=== PATIENT | male | born 1935 | race Caucasian/White ===

== ENCOUNTER 2023-05-10 09:27 | Emergency (ER) | payer MEDICARE, OTHER, SELFPAY ==
[2023-05-10] VITALS (22 sets, daily range): BP systolic 141–187; BP diastolic 75–104; PULSE 45–124; RESP 18–30; TEMP 36.8; O2SAT 91–95; BMI 27.3
--- NOTE | 2023-05-10 09:47 | DI.RAD.S_ITS ---
PROCEDURE: XR CHEST 1V INDICATIONS: chest pain TECHNIQUE: One view of the chest was acquired. COMPARISON: None. FINDINGS: Surgical changes and devices: Cardiac valvular device. Sternotomy wires. Lungs and pleura: No dense consolidation or pleural effusion. Mediastinum: Aortic calcifications. Bones and chest wall: Degenerative changes. IMPRESSION: No acute radiographic abnormality. Dictated by: Otto Washington M.D. on 05/10/2023 at 10:27 Approved by: Otto Washington M.D. on 05/10/2023 at 10:28
[2023-05-10 09:54] LABS: Add Manual Diff / Slide Review NO; Basophils Absolute Auto 0 /uL (0-100); Basophils Percent Auto 0.5 % (0-2); Eosinophils Absolute Auto 100 /uL (0-450); Eosinophils Percent Auto 1.5 % (2-4); Hemoglobin 14.7 g/dL (13.5-17.5); Lymphocytes Absolute Auto 1200 /uL (1100-4500); Lymphocytes Percent Auto 16.1 % (25-40); Mean Corpuscular HGB Conc 34.3 % (30-36); Mean Corpuscular Hemoglobin 27.9 PG (26-34); Mean Corpuscular Volume 81.2 fL (80-100); Monocytes Absolute Auto 500 /uL (0-900); Monocytes Percent Auto 7.1 % (3-14); Neutrophils Absolute Auto 5700 /uL (1500-7000); Neutrophils Percent Auto 74.8 % (50-75); Platelet Count 109 X10^3/uL (150-400); Red Blood Cell Count 5.29 X10^6/uL (4.5-5.9); Red Cell Distribution Width 15.7 % (11.6-14.8); White Blood Cell Count 7.6 X10^3/uL (4.5-11.0)
[2023-05-10 09:59] LABS: INR 1.3 (0.9-1.3); Prothrombin Time 14.4 SECONDS (10.1-12.7)
[2023-05-10 10:02] LABS: PTT Partial Thromboplastin Tim 37 SECONDS (26-36)
[2023-05-10 10:04] LABS: Alanine Aminotransferase 20 IU/L (<50); Albumin 4.6 g/dL (3.5-5.0); Albumin Globulin Ratio 1.4 (1.0-2.8); Alkaline Phosphatase 59 U/L (38-126); Aspartate Aminotransferase 28 IU/L (17-59); BUN Creatinine Ratio 16.4 (6-22); Blood Urea Nitrogen 11 mg/dL (9-20); Calcium 9.4 mg/dL (8.4-10.2); Carbon Dioxide 23 mmol/L (22-32); Chloride 106 mmol/L (98-107); Creatine Kinase 98 U/L (55-170); Estimated Glomerular Filt Rate > 60 mL/min (>60); Globulin 3.2 g/dL (1.7-4.1); Glucose 151 mg/dL (80-110); HEMOLYSIS 26 (0-50); Lipase 66 U/L (23-300); Magnesium 2.1 mg/dL (1.6-2.3); Potassium 4.1 mmol/L (3.4-5.1); Sodium 139 mmol/L (137-145); Total Protein 7.8 g/dL (6.3-8.2)
--- NOTE | 2023-05-10 10:13 | ED_ITS ---
HPI - SOB/Dyspnea General Chief Complaint: Shortness of Breath/Dyspnea Stated Complaint: sent by DR GIPSON Time Seen by Provider: 05/10/23 09:52 Source: patient Mode of arrival: Ambulatory Limitations: no limitations History of Present Illness HPI Narrative: Patient is a 87-year-old male with history of atrial fibrillation on Eliquis, with valve replacement presenting today with increasing shortness of breath. He moved here from [place] saw his primary care provider yesterday for influenza vaccine. He reports that he was not having difficulty breathing then but he felt like he had a little bit of sinus congestion. This morning he woke up after restless sleep with obvious shortness of breath. He denies any chest pain. He is having some obvious conversational dyspnea and tachypnea. He reports that he is no history of congestive heart failure. He did smoke from 1135-2020-3 packs a day but no diagnosis of COPD or emphysema. He denies any fever chills or cough. He has no sore throat. He thinks maybe an infection went into his lungs last night. No lower extremity edema. He reports that he was trying to stay hydrated Related Data Home Medications Medication Instructions Recorded Confirmed apixaban 5 mg tablet (Eliquis) 5 mg PO BID 05/10/23 05/10/23 Allergies Allergy/AdvReac Type Severity Reaction Status Date / Time No Known Drug Allergies Allergy Verified 05/10/23 09:46 Review of Systems Review of Systems ROS Unobtainable: All systems reviewed & are unremarkable except as noted in HPI and below Patient History Social History Smoking Status: Former smoker Smoking Status: Former smoker alcohol intake frequency: 0-2 drinks per day Substance Use Type: does not use Exam Initial Vital Signs Initial Vital Signs: Vital Signs Temperature 98.2 F 05/10/23 09:30 Pulse Rate 110 H 05/10/23 09:30 Respiratory Rate 28 H 05/10/23 09:30 Blood Pressure 186/87 H 05/10/23 09:30 Pulse Oximetry 93 05/10/23 09:30 Oxygen Delivery Method Room Air 05/10/23 09:30 GENERAL: Alert 87-year-old male in [id number] respiratory distress and in no acute distress. HEENT: Head atraumatic,EOMI, pupils reactive, face symmetric, moist mucous membranes CARDIOVASCULAR: Regular rate and rhythm without murmurs, rubs or gallops. RESPIRATORY: Tachypneic respiratory distress rales bilaterally slight expiratory wheezing ABDOMEN: Soft, nontender. Normoactive bowel sounds all 4 quadrants. No guarding or rebound. : No CVA tenderness EXTREMITIES: Normal range of motion, no clubbing or edema. Neurovascularly intact NEUROLOGICAL: Alert and oriented x4. Cranial nerves grossly intact SKIN: Warm, dry, no laceration, no petechiae, no rashes or lesions. Course Orders Ordered: ED Orders 05/10/23 10:35 Respiratory Panel (Film Array) Stat 05/10/23 11:50 Trop I [Troponin I] Stat 05/10/23 12:05 EKG-12 Lead Stat Discontinued Medications Albuterol (Albuterol 2.5 Mg/3 Ml Neb (Adult)) 2.5 mg INH NOW ONE Stop: 05/10/23 13:53 Last Admin: 05/10/23 14:03 Dose: 2.5 mg Documented By: BANDAR Albuterol (Albuterol Hfa Prepack) 1 box MISC SEEINSTR ONE Stop: 05/10/23 15:16 Last Admin: 05/10/23 15:25 Dose: 1 box Documented By: KATE Albuterol/Ipratropium (Albuterol/Ipratropium 3 Ml Ampul) 3 ml INH NOW ONE Stop: 05/10/23 10:12 Last Admin: 05/10/23 10:16 Dose: 3 ml Documented By: BANDAR Furosemide (Furosemide 40 Mg/4 Ml Vial) 20 mg IV NOW ONE Stop: 05/10/23 10:12 Last Admin: 05/10/23 10:31 Dose: 20 mg Documented By: AMParul Vital Signs Vital signs: Vital Signs - 8 hr 05/10/23 11:30 05/10/23 11:30 05/10/23 12:00 Pulse Rate 81 78 Respiratory Rate 20 25 H Blood Pressure 141/75 H Pulse Oximetry 94 92 Oxygen Delivery Method 05/10/23 12:01 05/10/23 12:01 05/10/23 12:30 Pulse Rate 78 Respiratory Rate 30 H Blood Pressure 161/79 H 150/79 H Pulse Oximetry 94 Oxygen Delivery Method 05/10/23 12:30 05/10/23 13:00 05/10/23 13:01 Pulse Rate 79 78 Respiratory Rate 23 28 H Blood Pressure 167/85 H Pulse Oximetry 94 94 Oxygen Delivery Method 05/10/23 13:01 05/10/23 13:30 05/10/23 13:30 Pulse Rate 79 78 Respiratory Rate 27 H 24 Blood Pressure 187/89 H Pulse Oximetry 93 93 Oxygen Delivery Method Room Air 05/10/23 15:04 05/10/23 14:00 05/10/23 14:00 Pulse Rate 110 H 100 H Respiratory Rate 29 H Blood Pressure 185/96 H Pulse Oximetry Oxygen Delivery Method 05/10/23 14:30 05/10/23 14:31 05/10/23 14:31 Pulse Rate 88 90 Respiratory Rate 29 H 29 H Blood Pressure 151/104 H Pulse Oximetry Oxygen Delivery Method 05/10/23 15:02 05/10/23 15:30 Pulse Rate 45 L 81 Respiratory Rate 30 H Blood Pressure Pulse Oximetry 93 Oxygen Delivery Method MDM - SOB/Dyspnea Lab Data 05/10/23 09:45 05/10/23 09:45 Labs: Lab Results 05/10/23 05/10/23 05/10/23 Range/Units 09:45 09:45 09:45 WBC 7.6 (4.5-11.0) X10^3/uL RBC 5.29 (4.5-5.9) X10^6/uL Hgb 14.7 (13.5-17.5) g/dL Hct 43.0 (41-53) % MCV 81.2 (80-100) fL MCH 27.9 (26-34) PG MCHC 34.3 (30-36) % RDW 15.7 H (11.6-14.8) % Plt Count 109 L (150-400) X10^3/uL Neut % (Auto) 74.8 (50-75) % Lymph % (Auto) 16.1 L (25-40) % Harding % (Auto) 7.1 (3-14) % Eos % (Auto) 1.5 L (2-4) % Baso % (Auto) 0.5 (0-2) % Neut # (Auto) 5700 (3380-7193) /uL Lymph # (Auto) 1200 (3770-6406) /uL Harding # (Auto) 500 (0-900) /uL Eos # (Auto) 100 (0-450) /uL Baso # (Auto) 0 (0-100) /uL PT 14.4 H (10.1-12.7) SECONDS INR 1.3 (0.9-1.3) APTT 37 H (26-36) SECONDS Sodium 139 (137-145) mmol/L Potassium 4.1 (3.4-5.1) mmol/L Chloride 106 (98-107) mmol/L Carbon Dioxide 23 (22-32) mmol/L BUN 11 (9-20) mg/dL Creatinine 0.67 (0.66-1.25) mg/dL Estimated GFR > 60 (>60) mL/min BUN/Creatinine Ratio 16.4 (6-22) Glucose 151 H (80-110) mg/dL Calcium 9.4 (8.4-10.2) mg/dL Magnesium 2.1 (1.6-2.3) mg/dL Total Bilirubin 1.0 (0.2-1.3) mg/dL AST 28 (17-59) IU/L ALT 20 (<50) IU/L Alkaline Phosphatase 59 (38-126) U/L Total Creatine Kinase 98 (55-170) U/L Troponin I 0.050 H (0.01-0.034) ng/mL NT-Pro-B Natriuret Pep 571 H (<450) pg/mL Total Protein 7.8 (6.3-8.2) g/dL Albumin 4.6 (3.5-5.0) g/dL Globulin 3.2 (1.7-4.1) g/dL Albumin/Globulin Ratio 1.4 (1.0-2.8) Lipase 66 (23-300) U/L Chlamy pneumoniae PCR (Not Detect) Adenovirus (PCR) (Not Detect) B. pertussis DNA (PCR) (Not Detecte) B.parapertussis DNA PCR (Not Detecte) Coronavirus OC43 (PCR) (Not Detect) Coronavirus HKU1 (PCR) (Not Detect) Coronavirus 229E (PCR) (Not Detect) SARS-CoV-2 (PCR) (Not Detecte) Coronavirus NL63 (PCR) (Not Detect) Human Metapneumovir PCR (Not Detect) Influenza Type A (PCR) (Not Detect) Influenza Type B (PCR) (Not Detect) M. pneumoniae (PCR) (Not Detect) Parainfluenza 1 (PCR) (Not Detect) Parainfluenza 2 (PCR) (Not Detect) Parainfluenza 3 (PCR) (Not Detect) Parainfluenza 4 (PCR) (Not Detect) RSV (PCR) (Not Detect) Entero/Rhino (PCR) (Not Detect) 05/10/23 05/10/23 Range/Units 10:35 11:50 WBC (4.5-11.0) X10^3/uL RBC (4.5-5.9) X10^6/uL Hgb (13.5-17.5) g/dL Hct (41-53) % MCV (80-100) fL MCH (26-34) PG MCHC (30-36) % RDW (11.6-14.8) % Plt Count (150-400) X10^3/uL Neut % (Auto) (50-75) % Lymph % (Auto) (25-40) % Harding % (Auto) (3-14) % Eos % (Auto) (2-4) % Baso % (Auto) (0-2) % Neut # (Auto) (1889-2652) /uL Lymph # (Auto) (0314-2806) /uL Harding # (Auto) (0-900) /uL Eos # (Auto) (0-450) /uL Baso # (Auto) (0-100) /uL PT (10.1-12.7) SECONDS INR (0.9-1.3) APTT (26-36) SECONDS Sodium (137-145) mmol/L Potassium (3.4-5.1) mmol/L Chloride (98-107) mmol/L Carbon Dioxide (22-32) mmol/L BUN (9-20) mg/dL Creatinine (0.66-1.25) mg/dL Estimated GFR (>60) mL/min BUN/Creatinine Ratio (6-22) Glucose (80-110) mg/dL Calcium (8.4-10.2) mg/dL Magnesium (1.6-2.3) mg/dL Total Bilirubin (0.2-1.3) mg/dL AST (17-59) IU/L ALT (<50) IU/L Alkaline Phosphatase (38-126) U/L Total Creatine Kinase (55-170) U/L Troponin I 0.049 H (0.01-0.034) ng/mL NT-Pro-B Natriuret Pep (<450) pg/mL Total Protein (6.3-8.2) g/dL Albumin (3.5-5.0) g/dL Globulin (1.7-4.1) g/dL Albumin/Globulin Ratio (1.0-2.8) Lipase (23-300) U/L Chlamy pneumoniae PCR Not detected (Not Detect) Adenovirus (PCR) Not detected (Not Detect) B. pertussis DNA (PCR) Not detected (Not Detecte) B.parapertussis DNA PCR Not detected (Not Detecte) Coronavirus OC43 (PCR) Not detected (Not Detect) Coronavirus HKU1 (PCR) Not detected (Not Detect) Coronavirus 229E (PCR) Not detected (Not Detect) SARS-CoV-2 (PCR) Not detected (Not Detecte) Coronavirus NL63 (PCR) Not detected (Not Detect) Human Metapneumovir PCR Not detected (Not Detect) Influenza Type A (PCR) Not detected (Not Detect) Influenza Type B (PCR) Not detected (Not Detect) M. pneumoniae (PCR) Not detected (Not Detect) Parainfluenza 1 (PCR) Not detected (Not Detect) Parainfluenza 2 (PCR) Not detected (Not Detect) Parainfluenza 3 (PCR) Not detected (Not Detect) Parainfluenza 4 (PCR) Not detected (Not Detect) RSV (PCR) Not detected (Not Detect) Entero/Rhino (PCR) Detected H (Not Detect) Urine Dip Bedside Urine Glucose Negative Bedside Urine Bilirubin - Negative Bedside Urine Ketone - Negative Urine Specific [place] 1.01 Bedside Urine Occult Blood - Negative Bedside Urine pH 6 Bedside Urine Protein - Negative Bedside Urine Urobilinogen - Negative Bedside Urine Nitrite - Negative Bedside Urine Leukocytes - Negative Esterase Imaging Data Chest x-ray: Radiologist's Impression: PROCEDURE:? XR CHEST 1V ? INDICATIONS:? chest pain ? TECHNIQUE:? One view of the chest was acquired.? ? COMPARISON:? None. ? FINDINGS:? ? Surgical changes and devices:? Cardiac valvular device.? Sternotomy wires. ? Lungs and pleura:? No dense consolidation or pleural effusion. ? Mediastinum:? Aortic calcifications. ? Bones and chest wall:? Degenerative changes. ? ? IMPRESSION:? No acute radiographic abnormality. ? ? Dictated by: Otto Washington M.D. on 05/10/2023 at 10:27 ECG Data Interpretation: Irregular racing in atrial fibrillation rate 100 EKG 2. Atrial flutter rate [address] changes MDM Narrative Medical decision making narrative: Patient 87-year-old male very pleasant presenting today with what he thought was upper respiratory infection that got worse. He is some obvious conversational dyspnea sounds wet on exam. Based on his smoking history he was given DuoNeb and Lasix. He actually started breathing much better got off oxygen and was able to have a full conversation. His chest x-ray is clear but respiratory panel positive for entero/rhinovirus. BNP minimally elevated at 571 chest x-ray is clear. Troponins are indeterminate but stable Initially there was concern for possible flash pulmonary edema congestive heart failure so he was given Lasix. However he actually improved more with duo nebs. He then started having more difficulty breathing was given another treatment which then helped. I suspect that this is viral related. No evidence of sepsis at this time. Chest x-ray is clear. And he is not hypoxic. Symptoms are consistent with a viral like picture. He reports having some congestion he felt a little bit yesterday and then today having sudden onset worsening shortness of breath. He ambulated in the ED oxygen went down to 89 but quickly went up into the 90s. We discussed admission versus discharge home. At this time he would like to go home which seems reasonable. We discussed how he may get worse and may need to return to the ED and is courage to do so. Labs have been reviewed Chest x-ray has been reviewed Discharge Plan Departure Patient Disposition: Home Clinical Impression: Acute upper respiratory infection Instructions: DI for Viral Upper Respiratory Infection -- Adult Activity Restrictions/Additional Instructions: *You have been diagnosed with upper respiratory tract *What to do: At this time you have virus. It will run its course can take up to 10 days. You may start feeling worse over the next few days *Continue to take medications as directed Albuterol 1-2 puffs every 4 hours if needed for shortness of breath Tylenol 650 mg every 4-6 hours if needed for [id number] pain or Avoid ibuprofen you are taking Eliquis *Follow up with your primary care provider in 2-3 days or call [phone] *Return to ER if you should have increasing shortness of breath decreased intake chest pain or any new, worsening or concerning symptoms Prescriptions: No Action Eliquis 5 mg tablet 5 mg PO BID Referrals: Miscellaneous,Doctor, MD [Primary Care Provider] - Stand Alone Forms: Patient Portal/API
[2023-05-10] MEDS: ALBUTEROL/IPRATROPIUM 3 ML AMPUL INH (10:16)
[2023-05-10 10:17] LABS: NT-proBNP (BNP-Adult 18+) 571 pg/mL (<450)
[2023-05-10] MEDS: FUROSEMIDE 40 MG/4 ML VIAL 20 MG IV (10:31)
[2023-05-10 11:58] LABS: Adenovirus Not Detected (Not Detect); B. parapertussis Not Detected (Not Detecte); Bordetella pertussis Not Detected (Not Detecte); Chlamydophila pneumoniae Not Detected (Not Detect); Coronavirus 229E Not Detected (Not Detect); Coronavirus HKU1 Not Detected (Not Detect); Coronavirus NL 63 Not Detected (Not Detect); Coronavirus OC43 Not Detected (Not Detect); Human Metapneumovirus Not Detected (Not Detect); Human Rhinovirus/Enterovirus Detected (Not Detect); Influenza A Not Detected (Not Detect); Influenza B Not Detected (Not Detect); Mycoplasma pneumoniae Not Detected (Not Detect); Parainfluenza Virus 1 Not Detected (Not Detect); Parainfluenza Virus 2 Not Detected (Not Detect); Parainfluenza Virus 3 Not Detected (Not Detect); Parainfluenza Virus 4 Not Detected (Not Detect); Respiratory Syncytial Virus Not Detected (Not Detect); SARS- CoV-2 Not Detected (Not Detecte)
[2023-05-10 12:24] LABS: Troponin I 0.049 ng/mL (0.01-0.034)
[2023-05-10] MEDS: ALBUTEROL 2.5 MG/3 ML NEB (ADULT) INH (14:03)
[2023-05-10] MEDS: ALBUTEROL HFA PREPACK 1 BOX MISC (15:25)
== END 2023-05-10 15:59 | disposition home or self-care (01) ==
PROVIDERS: Emergency Provider Emergency Medicine
DX: J06.9 Acute upper respiratory infection, unspecified (principal); R07.9 Chest pain, unspecified; Z20.822 Contact with and (suspected) exposure to COVID-19
CPT/HCPCS: 36415; 71045; 80053; 81003; 82550; 83690; 83735; 83880; 84484; 85025; 85610; 85730; 87633; 93005; 93010; 94640; 96374; 99284; J1940; J7613

== ENCOUNTER → 2023-11-08 10:45 | Outpatient (CLI) | payer OTHER, SELFPAY ==
--- NOTE | 2023-11-08 | DI.US.S_ITS ---
PROCEDURE: US ABDOMEN LIMITED INDICATIONS: LEFT INGUINAL BULGE, PAIN TECHNIQUE: Real-time focused scanning was performed of the abdomen, with image documentation. COMPARISON: None. Findings and impression: In the area of clinical concern in the left lower quadrant, no discrete hernia or mass or fluid collection is seen. Dictated by: Otto Washington M.D. on 11/08/2023 at 13:14 Approved by: Otto Washington M.D. on 11/08/2023 at 13:14
== END ==
LOC: US 10:48
PROVIDERS: PCP Family Medicine; Referring Provider Family Medicine; Visit Provider Family Medicine
DX: K40.90 Unilateral inguinal hernia, without obstruction or gangrene, not specified as recurrent (principal)
CPT/HCPCS: 76705

== ENCOUNTER 2023-12-26 10:03 | Day surgery (SDC) | payer OTHER, SELFPAY ==
[2023-12-21 14:34] VITALS: BMI 26.9
[2023-12-26] VITALS (7 sets, daily range): BP systolic 131–169; BP diastolic 73–79; PULSE 62–73; RESP 12–20; TEMP 36.4–36.6; O2SAT 96–98; BMI 26.9
[2023-12-26] MEDS: LACTATED RINGERS 1,000 ML 42 ML IV (10:44)
--- NOTE | 2023-12-26 11:00 | P.HP_ITS ---
History of Present Illness History of Present Illness Date Patient Seen: 12/26/23 Time Patient Seen: 11:00 Chief complaint: SDC Narrative: Shyam is an 88-year-old man who has a left inguinal hernia that bulges significantly especially after he eats. 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 He did hold his Eliquis yesterday. See prior office note for more details. [facility] Medical History (Updated 12/22/23 @ 08:04 by Kymberly Raygoza RN) Hypertriglyceridemia Paroxysmal atrial fibrillation Afib Hypertension Glaucoma Diabetes Surgical History (Updated 12/22/23 @ 08:04 by Kymberly Raygoza RN) Hx of tonsillectomy Hx of shoulder surgery Hx of heart surgery (11/29/06) Hx of hernia repair Social History household members: spouse Smoking Status: Former smoker alcohol intake: current Meds Home Medications and Allergies Home Medications Medication Instructions Recorded Confirmed Type apixaban 5 mg tablet (Eliquis) 5 mg PO BID 05/10/23 12/26/23 History atorvastatin 40 mg tablet 40 mg PO DAILY 11/21/23 12/26/23 History lisinopril 5 mg tablet 5 mg PO DAILY 11/21/23 12/26/23 History Allergies Allergy/AdvReac Type Severity Reaction Status Date / Time No Known Drug Allergies Allergy Verified 12/26/23 10:31 Exam Vital Signs (past 8 hours): - 12/26/23 10:32 Temperature 98 F Pulse Rate 73 Respiratory Rate 20 Blood Pressure 169/79 H Pulse Oximetry 97 Oxygen Delivery Method Room Air Oxygen Delivery Method Room Air Const General: No acute distress Resp Effort & Inspection: normal respiratory effort GI Other: Left inguinal hernia Assessment & Plan Assessment and plan (1) Left inguinal hernia: Status: Acute Plan Shyam is an 88-year-old man with a symptomatic left inguinal hernia. We reviewed the risks and benefits of open left inguinal hernia repair with sedation and he would like to proceed.
--- NOTE | 2023-12-26 11:15 | SUR.OPER ---
Supine on padded OR bed, head on pillow, arms secured on padded arm boards at <90 degrees abduction, legs uncrossed, safety belt at thigh, tape over blanket over lower legs.
[2023-12-26] MEDS: CEFAZOLIN 2 GM/100 ML PREMIX 100 ML IV (11:17)
[2023-12-26] MEDS: LIDOCAINE 1% W/EPI 20 ML INJ (11:30)
[2023-12-26] MEDS: BUPIVACAINE 0.5% W/ EPI (PF) 30 ML VIAL INJ (11:32)
--- NOTE | 2023-12-26 12:36 | P.OP_ITS ---
Operative Date/Time/Diagnoses Date of procedure: 12/26/23 Time of procedure: 12:36 Pre-op diagnosis: Left inguinal hernia Post-op diagnosis: other (Left indirect inguinal hernia) Procedure & Clinicians Procedure: Open left inguinal hernia repair with mesh Same procedure as scheduled: Yes Surgeon: Ranjan Glover Anesthesia Type: MAC +/- Operative Notes Procedure in detail: Preoperative antibiotic was administered. The patient was brought to the operating room and placed on the table in supine position and sedation was induced. The left groin was prepped and draped in the normal fashion and a time-out was performed. Roughly 10 mL of local anesthetic were injected into the skin and subcutaneous adipose tissue over the left groin. A 6 cm incision was made over the left inguinal canal. Dissection was carried down through the subcutaneous adipose tissue. A bridging vein was cauterized. We exposed the external oblique aponeurosis in the direction of the fibers. Additional local was injected deep to the aponeurosis. A 15 blade scalpel was used to laura the external oblique aponeurosis. Metzenbaum scissors were used to carefully open the aponeurosis in the direction of the fibers taking care not to injure the underlying ilioinguinal nerve. We completely exposed the inguinal canal. The cord was dissected free from the inguinal ligament and floor of the inguinal canal and the external oblique aponeurosis was dissected off of the internal oblique taking care not to injure the hypogastric nerve. We encircled the cord with a Scott drain for retraction. There was a relatively large indirect defect. The hernia sac and a fatty cord lipoma were dissected off the cord structures and reduced into the abdomen. We placed a polypropylene mesh over the inguinal canal floor. The mesh was secured with multiple interrupted 3-0 Prolene sutures to the pubic tubercle and shelving edge of the inguinal ligament as well as to the conjoint tendon medially. We overlapped the tails to recreate an internal ring and secured the medial tail to the inguinal ligament with additional sutures. We injected some more local into the fatty tissue in the inguinal canal and cord. Finally, we removed the Universal drain and closed the external oblique fascia wi th a running 3-0 Vicryl suture. Skin was closed with interrupted 3-0 Vicryl dermal sutures and a running 4 Monocryl subcuticular stitch. EBL 5 mL The patient was awakened and brought to recovery room. Post-operative Condition: stable Disposition: PACU
== END 2023-12-26 13:34 | disposition home or self-care (01) ==
PROVIDERS: PCP Family Medicine; Referring Provider Surgery; Visit Provider Surgery
PROC: (CPT 49505; principal; 2023-12-26 11:45)
DX: K40.90 Unilateral inguinal hernia, without obstruction or gangrene, not specified as recurrent (principal)
CPT/HCPCS: 49505; 82962; J0690; J2704; J3010

== ENCOUNTER → 2024-02-16 09:11 | Outpatient (CLI) | payer OTHER, SELFPAY ==
--- NOTE | 2024-02-16 09:12 | DI.ECHO.S_ITS ---
[facility] : : [address] : : [place] : : [id number] : : Phone: [phone] Echocardiogram Report + + :Name: JOVITA NEWMAN Study Date: 02/16/2024 Height: 71 in : :[facility] ReadingLocation: Weight: 194 lb : : Gender: Male BSA: 2.1 m2 : :: 1935 Age: 88 yrs BP: 154/76 mmHg: :Reason For Study: ATRIAL FIBRILLATION : :Ordering Physician: DANIE, : :VENITA Performed By: Terry Mark : :Referring: VENITA HELTON : + + Interpretation Summary The ejection fraction is estimated to be 55-60%. The right ventricle is mildly dilated. Right ventricular systolic function is mildly reduced. The left atrium is severely dilated. The right atrium is moderately dilated. The right ventricular systolic pressure is estimated to be at least 40.2 mmHg based on an estimated right atrial pressure of 8 mm Hg. There is mild to moderate tricuspid regurgitation. The mitral valve has been surgically repaired and an annuloplasty ring sewn in place. Procedure: A two-dimensional transthoracic echocardiogram with color flow and Doppler was performed. The study quality was technically adequate. There is no prior echocardiogram noted for this patient. The heart rate ranged between 69-75 bpm during the study. Left Ventricle: The left ventricle is normal in size and wall thickness. The ejection fraction is estimated to be 55-60%. Left ventricular wall motion is normal. Right Ventricle: The right ventricle is mildly dilated. Right ventricular systolic function is mildly reduced. Atria: The left atrium is severely dilated. The right atrium is moderately dilated. The interatrial septum grossly appears intact with no obvious evidence for an atrial septal defect. Mitral Valve: The mitral valve leaflets appear moderately thickened, but open well. The mitral valve has been surgically repaired and an annuloplasty ring sewn in place. There is no mitral valve stenosis. There is trace mitral regurgitation. Aortic Valve: The aortic valve is trileaflet. There is moderate aortic valve sclerosis. There is no aortic valve stenosis. There is moderate to severe aortic regurgitation. Tricuspid Valve: The tricuspid valve is normal. There is no tricuspid stenosis. There is mild to moderate tricuspid regurgitation. The right ventricular systolic pressure is estimated to be at least 40.2 mmHg based on an estimated right atrial pressure of 8 mm Hg. Pulmonic Valve: The pulmonic valve is not well seen, but is grossly normal. There is no pulmonic valvular stenosis. There is mild to moderate pulmonic regurgitation. Great Vessels: The aortic root is mildly dilated. The ascending aorta is mildly enlarged. The IVC is dilated (diameter is greater than 2.1 cm) yet it collapses greater than 50% with a sniff. This suggests a right atrial pressure of 8 mm Hg. Pericardium/ Pleura There is no pericardial effusion. There is no pleural effusion. MMode/2D Measurements & Calculations LVIDd: 4.4 cm LVOT diam: 2.3 cm LVIDs: 2.8 cm Ao root diam: 4.1 cm FS: 36.2 % asc Aorta Diam: 4.0 cm IVSd: 1.0 cm Ao Arch Diam (Prox Trans): 3.7 cm LVPWd: 1.0 cm LV stephens. diameter/BSA (cm/m^2): 2.1 LV sys. diameter/BSA (cm/m^2): 1.4 LA A2 area: 37.0 cm2 RA long axis: 5.4 cm LA A4 area: 33.7 cm2 RA area: 19.2 cm2 LA length (vol): 7.4 cm RA vol: 58.6 ml LA vol: 142.8 ml RA : 28.1 ml/m2 LA vol index: 68.6 ml/m2 IVC diam: 2.1 cm RVD1 (basal): 4.6 cm RVD2 (mid): 3.6 cm TAPSE: 1.7 cm Doppler Measurements & Calculations Ao V2 max: 145.9 cm/sec LVOT Max Darren: 105.6 cm/sec Ao V2 mean: 97.0 cm/sec LV V1 max P.5 mmHg Ao max P.5 mmHg LV V1 VTI: 24.9 cm Ao mean P.3 mmHg SILVIANO(I,D): 3.7 cm2 Ao V2 VTI: 28.4 cm SILVIANO(V,D): 3.0 cm2 sev ratio: 0.87 SILVIANO indexed to BSA (cm^2/m^2): 1.8 AI P1/2t: 447.3 msec AI dec slope: 297.1 cm/sec2 MV E max darren: 163.6 cm/sec TR max darren: 283.5 cm/sec MV A max darren: 19.4 cm/sec TR max P.2 mmHg MV E/A: 8.5 PA V2 max: 106.6 cm/sec Med Peak E' Darren: 5.7 cm/sec PA V2 mean: 84.1 cm/sec E/E' med: 28.6 PA mean P.0 mmHg Lat Peak E' Darren: 9.0 cm/sec PA pr(Accel): 39.6 mmHg E/E' lat: 18.2 E/e' average: 23.4 MV dec time: 0.29 sec SV(LVOT): 104.1 ml Reading Physician:02:32 PM
== END ==
PROVIDERS: PCP Family Medicine; Referring Provider Internal Medicine Cardiovascular Disease; Visit Provider Internal Medicine Cardiovascular Disease
DX: I08.2 Rheumatic disorders of both aortic and tricuspid valves (principal); I77.810 Thoracic aortic ectasia; I77.89 Other specified disorders of arteries and arterioles; I48.91 Unspecified atrial fibrillation
CPT/HCPCS: 93306

== ENCOUNTER 2024-08-06 13:56 | Emergency (ER) | payer OTHER, SELFPAY ==
[2024-08-06 14:04] VITALS: BP 186/92; PULSE 74; RESP 20; TEMP 36.6; O2SAT 97; BMI 26.8
--- NOTE | 2024-08-06 14:11 | DI.CT.S_ITS ---
PROCEDURE: CT ANGIO HEAD AND NECK INDICATIONS: Right-sided visual changes TECHNIQUE: After the administration of intravenous contrast, 1 mm thick sections acquired from the aortic arch through the [place] of Bone. 3-dimensional zkvcarl-wnvjydufb-wvgplzxmtl (MIP) and/or volume rendering reformats were acquired of the central intracranial vasculature and neck separately. For radiation dose reduction, the following was used: automated exposure control, adjustment of mA and/or kV according to patient size. COMPARISON: None. FINDINGS: Image quality: Diagnostic. BRAIN: CSF spaces: Ventricles are normal in size and shape. Basal cisterns are patent. No extra-axial fluid collections. Brain: No significant abnormality of the brain can be seen. Skull and face: Calvarium and facial bones appear intact, without suspicious lesions. Orbits appear normal. Sinuses: Sinuses and mastoids are clear. HEAD CT ANGIOGRAPHY: Anterior circulation: Intracranial internal carotid arteries are normal in size and flow. The flow within the paired anterior cerebral arteries is normal and symmetric. The flow within the middle cerebral arteries is normal and symmetric. The anterior communicating artery is seen. No aneurysms are seen. Posterior circulation: Visualized portions of the vertebral arteries demonstrate normal caliber, and join to form a normal appearing basilar artery. Flow within the posterior cerebral arteries is normal and symmetric. No aneurysms are seen. NECK CT ANGIOGRAPHY: Carotid system: The great vessels demonstrate a conventional anatomy as they arise from the aortic arch. The origins of the common carotid arteries appear patent. The common carotid arteries demonstrate normal caliber and courses. The bifurcation regions are both widely patent. The internal carotid arteries demonstrate normal calibers and courses. Posterior circulation: The origins of the vertebral arteries both appear widely patent. The more superior extracranial portions of both vertebral arteries also demonstrate normal courses and calibers. They join to form a normal appearing basilar artery. Aneurysmal dilatation of the ascending aorta measuring approximately 4.7 cm on the lowest image provided. Soft tissues: Visualized neck soft tissues demonstrate no suspicious abnormalities. Bones: No suspicious bony lesions. Visualized cervical spine appears normally aligned. IMPRESSION: No significant intracranial arterial abnormality is seen. No significant abnormality is seen within the arteries of the neck. Aneurysmal dilatation of the ascending aorta. Any quantitative measurements of stenosis were performed using NASCET criteria. Dictated by: Satish Hankins M.D. on 08/06/2024 at 14:48 Approved by: Satish Hankins M.D. on 08/06/2024 at 14:51
--- NOTE | 2024-08-06 14:12 | DI.CT.S_ITS ---
PROCEDURE: CT HEAD/BRAIN WO CON INDICATIONS: Right-sided visual changes TECHNIQUE: Noncontrast 4.5 mm thick angled axial sections acquired from the foramen magnum to the vertex, with coronal and sagittal reformats. For radiation dose reduction, the following was used: automated exposure control, adjustment of mA and/or kV according to patient size. COMPARISON: None. FINDINGS: Image quality: Diagnostic. CSF spaces: Basal cisterns are patent. No extra-axial fluid collections. The ventricles are symmetric in size and shape. Brain: No intracranial bleeds or masses. There is cerebral volume loss for age, with resultant ventricular and sulcal prominence. There are periventricular and deep white matter chronic small vessel ischemic changes. There is intracranial internal carotid artery atherosclerosis. Skull and face: Calvarium and visualized facial bones appear intact, without suspicious lesions. Sinuses: Patchy bilateral ethmoid opacification. Bilateral maxillary sinus mucosal thickening. Right maxillary sinus mucous retention cyst. IMPRESSION: 1. No acute intracranial process. 2. Volume loss and small vessel ischemic change. 3. Chronic sinusitis. Dictated by: Satish Hankins M.D. on 08/06/2024 at 14:46 Approved by: Satish Hankins M.D. on 08/06/2024 at 14:47
--- NOTE | 2024-08-06 14:14 | EKG_ITS ---
[address] [address] Test Date: 2024-08-06 Pat Name: Kit Espana Department: Room: Gender: Male Machine Sander: NISHA : 1935 Requested By: Order Number: [id number] Reading MD: Noel Hicks MD Measurements Intervals [place] Rate: 74 P: [place]: QRS: 78 QRSD: 96 T: 74 QT: 374 QTc: 415 Interpretive Statements Accelerated Junctional rhythm Cannot rule out Anterior infarct , age undetermined Electronically Signed On 08-07-2024 6:51:13 PST by Noel Hicks MD
[2024-08-06 14:31] LABS: Add Manual Diff / Slide Review NO; Basophils Absolute Auto 100 /uL (0-100); Basophils Percent Auto 1.2 % (0-2); Eosinophils Absolute Auto 200 /uL (0-450); Hemoglobin 15.1 g/dL (13.5-17.5); Lymphocytes Absolute Auto 1400 /uL (1100-4500); Lymphocytes Percent Auto 22.8 % (25-40); Mean Corpuscular HGB Conc 33.6 % (30-36); Mean Corpuscular Hemoglobin 28.3 PG (26-34); Mean Corpuscular Volume 84.4 fL (80-100); Monocytes Absolute Auto 600 /uL (0-900); Monocytes Percent Auto 9.6 % (3-14); Neutrophils Absolute Auto 3700 /uL (1500-7000); Neutrophils Percent Auto 62.4 % (50-75); Platelet Count 151 X10^3/uL (150-400); Red Blood Cell Count 5.34 X10^6/uL (4.5-5.9); Red Cell Distribution Width 15.5 % (11.6-14.8)
[2024-08-06 14:35] LABS: INR 1.2 (0.9-1.3); Prothrombin Time 13.9 SECONDS (9.4-12.5)
[2024-08-06 14:38] LABS: PTT Partial Thromboplastin Tim 45 SECONDS (25.1-36.5)
[2024-08-06 14:42] LABS: Alanine Aminotransferase 25 IU/L (<50); Albumin 4.7 g/dL (3.5-5.0); Albumin Globulin Ratio 1.7 (1.0-2.8); Alkaline Phosphatase 59 U/L (38-126); Aspartate Aminotransferase 32 IU/L (17-59); BUN Creatinine Ratio 16.3 (6-22); Blood Urea Nitrogen 17 mg/dL (9-20); Calcium 10.1 mg/dL (8.4-10.2); Carbon Dioxide 28 mmol/L (22-32); Chloride 105 mmol/L (98-107); Creatine Kinase 87 U/L (55-170); Estimated Glomerular Filt Rate > 60 mL/min (>60); Globulin 2.8 g/dL (1.7-4.1); Glucose 106 mg/dL (80-110); HEMOLYSIS < 15 (0-50); Lipase 64 U/L (23-300); Potassium 4.1 mmol/L (3.4-5.1); Sodium 140 mmol/L (137-145); Total Protein 7.5 g/dL (6.3-8.2)
[2024-08-06 14:47] VITALS: BP 151/74; PULSE 66; RESP 18; RESP 20; O2SAT 92
[2024-08-06 14:55] LABS: Troponin I < 0.012 ng/mL (0.01-0.034)
--- NOTE | 2024-08-06 14:59 | ED.NEUROSD ---
HPI - Neuro Symptoms/Deficit General Chief Complaint: Neuro Symptoms/Deficit Stated Complaint: stroke symptoms, sent by PT Time Seen by Provider: 08/06/24 14:11 Source: patient and family Mode of arrival: Ambulatory History of Present Illness HPI Narrative: Patient was an 88-year-old male. Is on Eliquis secondary to atrial fibrillation. No prior history of strokes. He states that he is a ekm-tnrzexc-moyjfykrz diabetic. Has a history of high blood pressure. Uses a cane sometimes for ambulation. Walks every day. Yesterday noticed that he was having some weakness to his right arm. He also describes a ?pressure? behind the right eye. No vision changes. Also has a slight headache. He also notices weakness in his lower extremities. He feels like it is both sides equal. He was still ambulatory. No falls. No chest pain or shortness of breath or abdominal pain. No skin changes. Has been taking all of his medications as directed. On Anticoagulants: Yes (Eliquis for hx of Afib) Related Data Home Medications Medication Instructions Recorded Confirmed apixaban 5 mg tablet (Eliquis) 5 mg PO BID 05/10/23 01/09/24 atorvastatin 40 mg tablet 40 mg PO DAILY 11/21/23 01/09/24 lisinopril 5 mg tablet 5 mg PO DAILY 11/21/23 01/09/24 Allergies Allergy/AdvReac Type Severity Reaction Status Date / Time No Known Drug Allergies Allergy Verified 01/09/24 14:09 Review of Systems Review of Systems ROS Unobtainable: All systems reviewed & are unremarkable except as noted in HPI and below Hematologic/Lymphatic On Anticoagulants: Yes (Eliquis for hx of Afib) Patient History Medical History Hypertriglyceridemia Paroxysmal atrial fibrillation Afib Hypertension Glaucoma Diabetes Surgical History (Updated 12/22/23 @ 08:04 by Kymberly Raygoza RN) Hx of tonsillectomy Hx of shoulder surgery Hx of heart surgery (11/29/06) Hx of hernia repair Social History household members: spouse Smoking Status: Former smoker alcohol intake: current Smoking Status: Former smoker alcohol intake frequency: a few times a month Exam Initial Vital Signs Initial Vital Signs: Vital Signs Temperature 97.9 F 08/06/24 14:04 Pulse Rate 74 08/06/24 14:04 Respiratory Rate 20 08/06/24 14:04 Blood Pressure 186/92 H 08/06/24 14:04 Pulse Oximetry 97 08/06/24 14:04 Oxygen Delivery Method Room Air 08/06/24 14:04 Const General: cooperative, comfortable and No ill appearing HENMT Head: normal to inspection and normocephalic Resp Effort & Inspection: normal respiratory effort Auscultation: clear to auscultation bilaterally Cardio Rate: regular rate Rhythm: regular rhythm GI Inspection: normal to inspection and non-distended Neuro General: patient alert, patient awake, patient oriented x3 and moves all extremities Cranial Nerves: CN's II-XI intact bilaterally Cognition: normal cognition Speech: speech normal Motor: muscle tone normal throughout Sensory Exam: no sensory deficits noted Coordination: atjged-td-klgb test normal and qqnh-po-coyl test normal Extrem General: normal to inspection and capillary refill normal Scores GCS Todd coma scale eye opening: Spontaneous Todd coma scale verbal response: Orientated [place] coma scale motor response: Obey commands Todd coma scale total score: 15 NIH Stroke Scale Level of Conciousness: Alert, keenly responsive Ask month/age: Answers both questions correctly. Open/close eyes, close hand: Performs both tasks correctly Best gaze horizontal: Normal Visual briones: No visual loss Facial palsy: Normal symetrical movement Left arm drift: No drift for full 10 sec Right arm drift: No drift for full 10 sec Left leg drift: No drift for full 5 sec Right leg drift: No drift for full 5 sec Limb ataxia: Absent Sensory on face/arms/legs: Normal, no sensory loss Best language: No aphasia, normal Dysarthria: Normal Extinction or inattention: No abnormality Total NIH Stroke scale score: 0 Course Orders Ordered: ED Orders 08/06/24 14:11 CT angio head and neck Stat 08/06/24 14:12 CT head/brain wo con Stat EKG-12 Lead Stat 08/06/24 14:15 Complete Blood Count AUTO DIFF Stat Comprehensive Metabolic Panel Stat Lipase Stat PTT Partial Thromboplastin Devin Stat Prothrombin Time INR Stat Troponin & CK Cardiac Panel Stat Vital Signs Vital signs: Vital Signs - 8 hr 08/06/24 14:04 08/06/24 14:47 08/06/24 14:47 Temperature 97.9 F Pulse Rate 74 66 66 Respiratory Rate 20 18 20 Blood Pressure 186/92 H 151/74 H Pulse Oximetry 97 92 92 Oxygen Delivery Method Room Air Room Air 08/06/24 15:00 08/06/24 15:00 08/06/24 15:42 Temperature 97.8 F Pulse Rate 67 74 Respiratory Rate 20 16 Blood Pressure 164/82 H 179/90 H Pulse Oximetry 96 97 Oxygen Delivery Method Room Air Room Air MDM - Neuro Symptoms/Deficit Medical Records Attestation: I reviewed the patient's medical records. Lab Data Attestation: I reviewed the patient's lab results. 08/06/24 14:15 08/06/24 14:15 Labs: Lab Results 08/06/24 Range/Units 14:15 WBC 6.0 (4.5-11.0) X10^3/uL RBC 5.34 (4.5-5.9) X10^6/uL Hgb 15.1 (13.5-17.5) g/dL Hct 45.0 (41-53) % MCV 84.4 (80-100) fL MCH 28.3 (26-34) PG MCHC 33.6 (30-36) % RDW 15.5 H (11.6-14.8) % Plt Count 151 (150-400) X10^3/uL Neut % (Auto) 62.4 (50-75) % Lymph % (Auto) 22.8 L (25-40) % [place] % (Auto) 9.6 (3-14) % Eos % (Auto) 4.0 (2-4) % Baso % (Auto) 1.2 (0-2) % Neut # (Auto) 3700 (6546-7028) /uL Lymph # (Auto) 1400 (2557-7142) /uL [place] # (Auto) 600 (0-900) /uL Eos # (Auto) 200 (0-450) /uL Baso # (Auto) 100 (0-100) /uL PT 13.9 H (9.4-12.5) SECONDS INR 1.2 (0.9-1.3) APTT 45 H (25.1-36.5) SECONDS Sodium 140 (137-145) mmol/L Potassium 4.1 (3.4-5.1) mmol/L Chloride 105 (98-107) mmol/L Carbon Dioxide 28 (22-32) mmol/L BUN 17 (9-20) mg/dL Creatinine 1.04 (0.66-1.25) mg/dL Estimated GFR > 60 (>60) mL/min BUN/Creatinine Ratio 16.3 (6-22) Glucose 106 (80-110) mg/dL Calcium 10.1 (8.4-10.2) mg/dL Total Bilirubin 1.0 (0.2-1.3) mg/dL AST 32 (17-59) IU/L ALT 25 (<50) IU/L Alkaline Phosphatase 59 (38-126) U/L Total Creatine Kinase 87 (55-170) U/L Troponin I < 0.012 (0.01-0.034) ng/mL Total Protein 7.5 (6.3-8.2) g/dL Albumin 4.7 (3.5-5.0) g/dL Globulin 2.8 (1.7-4.1) g/dL Albumin/Globulin Ratio 1.7 (1.0-2.8) Lipase 64 (23-300) U/L Point of Care Testing Glucose POC 95 Imaging Data CTA - brain/neck: Radiologist's Impression: PROCEDURE: CT ANGIO HEAD AND NECK INDICATIONS: Right-sided visual changes TECHNIQUE: After the administration of intravenous contrast, 1 mm thick sections acquired from the aortic arch through the [place] of Bone. 3-dimensional lrtjmsc-iaiyxwlru-ngetxryone (MIP) and/or volume rendering reformats were acquired of the central intracranial vasculature and neck separately. For radiation dose reduction, the following was used: automated exposure control, adjustment of mA and/or kV according to patient size. COMPARISON: None. FINDINGS: Image quality: Diagnostic. BRAIN: CSF spaces: Ventricles are normal in size and shape. Basal cisterns are patent. No extra-axial fluid collections. Brain: No significant abnormality of the brain can be seen. Skull and face: Calvarium and facial bones appear intact, without suspicious lesions. Orbits appear normal. Sinuses: Sinuses and mastoids are clear. HEAD CT ANGIOGRAPHY: Anterior circulation: Intracranial internal carotid arteries are normal in size and flow. The flow within the paired anterior cerebral arteries is normal and symmetric. The flow within the middle cerebral arteries is normal and symmetric. The anterior communicating artery is seen. No aneurysms are seen. Posterior circulation: Visualized portions of the vertebral arteries demonstrate normal caliber, and join to form a normal appearing basilar artery. Flow within the posterior cerebral arteries is normal and symmetric. No aneurysms are seen. NECK CT ANGIOGRAPHY: Carotid system: The great vessels demonstrate a conventional anatomy as they arise from the aortic arch. The origins of the common carotid arteries appear patent. The common carotid arteries demonstrate normal caliber and courses. The bifurcation regions are both widely patent. The internal carotid arteries demonstrate normal calibers and courses. Posterior circulation: The origins of the vertebral arteries both appear widely patent. The more superior extracranial portions of both vertebral arteries also demonstrate normal courses and calibers. They join to form a normal appearing basilar artery. Aneurysmal dilatation of the ascending aorta measuring approximately 4.7 cm on the lowest image provided. Soft tissues: Visualized neck soft tissues demonstrate no suspicious abnormalities. Bones: No suspicious bony lesions. Visualized cervical spine appears normally aligned. IMPRESSION: No significant intracranial arterial abnormality is seen. No significant abnormality is seen within the arteries of the neck. Aneurysmal dilatation of the ascending aorta. Any quantitative measurements of stenosis were performed using NASCET criteria. CT scan - head: Radiologist's Impression: PROCEDURE: CT HEAD/BRAIN WO CON INDICATIONS: Right-sided visual changes TECHNIQUE: Noncontrast 4.5 mm thick angled axial sections acquired from the foramen magnum to the vertex, with coronal and sagittal reformats. For radiation dose reduction, the following was used: automated exposure control, adjustment of mA and/or kV according to patient size. COMPARISON: None. FINDINGS: Image quality: Diagnostic. CSF spaces: Basal cisterns are patent. No extra-axial fluid collections. The ventricles are symmetric in size and shape. Brain: No intracranial bleeds or masses. There is cerebral volume loss for age, with resultant ventricular and sulcal prominence. There are periventricular and deep white matter chronic small vessel ischemic changes. There is intracranial internal carotid artery atherosclerosis. Skull and face: Calvarium and visualized facial bones appear intact, without suspicious lesions. Sinuses: Patchy bilateral ethmoid opacification. Bilateral maxillary sinus mucosal thickening. Right maxillary sinus mucous retention cyst. IMPRESSION: 1. No acute intracranial process. 2. Volume loss and small vessel ischemic change. 3. Chronic sinusitis. ECG Data Attestation: I personally reviewed and interpreted this ECG as follows: Interpretation: Sinus rhythm Ventricular rate is 74 Normal axis Normal QRS No ST T wave changes MDM Narrative Medical decision making narrative: Patient was no changes in vision from his baseline. Strength is equal bilateral. No reproducible changes in sensation to his upper and lower extremities/bilaterally. Head CT and CTA of head and neck are unremarkable. No large vessel occlusion. Patient was not a candidate for tPA given the length of time he was had symptoms and the fact that he was on Eliquis. Labs are unremarkable. He was some suspicion about CVA/TIA. I did discuss this with the patient. I did discuss the case with Dr. Blue who is his primary doctor. Had a discussion with the patient regarding admission to the hospital for further evaluation to include an MRI versus discharge home. We discussed the risks and benefits of each of these. The patient opted to be discharged home. Patient was alert and oriented x3. GCS of 15. In my opinion has capacity to make decisions. Dr. Blue office will contact patient for urgent referral for MRI. Patient was given strict return precautions. He expressed understanding and agreement with plan. Discharge Plan Departure Patient Disposition: Home Clinical Impression: Distal paresthesia, Headache Instructions: DI for Numbness/Tingling Activity Restrictions/Additional Instructions: You should be receiving a call from your primary care doctor's office to help schedule a MRI as an outpatient. Continue to take all of your medications as directed. Return to the emergency department for new or worsening symptoms. Prescriptions: No Action atorvastatin 40 mg tablet 40 mg PO DAILY lisinopril 5 mg tablet 5 mg PO DAILY Eliquis 5 mg tablet 5 mg PO BID Referrals: Esequiel Blue MD [Primary Care Provider] - Stand Alone Forms: Patient Portal/API/Survey
[2024-08-06 15:00] VITALS: BP 164/82; PULSE 67; RESP 20; O2SAT 96
[2024-08-06 15:42] VITALS: BP 179/90; PULSE 74; RESP 16; TEMP 36.6; O2SAT 97
== END 2024-08-06 15:42 | disposition home or self-care (01) ==
PROVIDERS: Emergency Provider Emergency Medicine; PCP Family Medicine
DX: R20.2 Paresthesia of skin (principal); R51.9 Headache, unspecified; Z79.01 Long term (current) use of anticoagulants; H53.9 Unspecified visual disturbance; R07.9 Chest pain, unspecified
CPT/HCPCS: 36415; 70450; 70496; 70498; 80053; 82550; 82962; 83690; 84484; 85025; 85610; 85730; 93005; 93010; 99284; Q9967

== ENCOUNTER → 2024-08-24 15:11 | Outpatient (CLI) | payer OTHER, SELFPAY ==
--- NOTE | 2024-08-24 15:14 | DI.MRI.S_ITS ---
PROCEDURE: MR STROKE Pre- and post-contrast brain MRI, non-contrast brain MR angiogram, pre- and postcontrast neck MR angiogram INDICATIONS: Numbness and tingling in left arm, vision changes TECHNIQUE: Brain: Noncontrast axial T1 spin echo, axial T2 fast spin echo, sagittal and axial FLAIR, coronal T2 fast spin echo, axial gradient echo, axial diffusion and ADC through the brain. After the administration of contrast, axial 3D VIBE of the cranial vasculature and brain. Brain MRA: Non-contrast 3-D time of flight MR angiogram, with multiple ozvpmsi-bvoggkyuo-jrosyxvowu (MIP) reformats performed. Neck MRA: Axial and sagittal TruFISP through the neck. Coronal dynamic MR angiogram during administration of contrast in the arterial and venous phases, with 3-dimenstional gpbhdrl-isnbqwnqs-gbmnnkszkw (MIP) reformats constructed from subtraction images. COMPARISON: [facility], CT, CT HEAD/BRAIN WO CON, 08/06/2024, 14:26. [facility], CT, CT ANGIO HEAD AND NECK, 08/06/2024, 14:26. FINDINGS: Image quality: This examination is limited by involuntary motion artifact. BRAIN: CSF spaces: Ventricles are normal in size and shape. Basal cisterns are patent. No extra-axial fluid collections. Brain: No intracranial bleeds or mass effects. [place]-white matter interface is normal. Diffusion weighted images show no acute infarct. Brainstem appears normal. Normal intravascular flow voids are present. No abnormal intracranial enhancement. Note is made of age-appropriate brain parenchymal volume loss and chronic small vessel ischemic changes. Skull and face: Calvarial marrow signal is normal. Orbits appear normal. Note is made of bilateral lens replacements. Sinuses: There is a mucous retention cyst seen within the right maxillary sinus. Moderate mucosal thickening is seen within the paranasal sinuses. No abnormal fluid is seen within the mastoid air cells. BRAIN MR ANGIOGRAM: Anterior circulation: Intracranial internal carotid arteries are normal in size and enhancement. The flow within the paired anterior cerebral arteries is normal and symmetric. The flow within the middle cerebral arteries is normal and symmetric. The anterior communicating artery is seen. No stenoses, occlusions, or aneurysms. Posterior circulation: The visualized portions of the vertebral arteries demonstrate normal caliber, and join to form a normal appearing basilar artery. The flow within the posterior cerebral arteries is normal and symmetric. No stenoses, occlusions, or aneurysms. NECK MR ANGIOGRAM: Carotids: Great vessels demonstrate a conventional anatomy as they arise from the aortic arch. The origins of the common carotid arteries appear patent. The calibers and courses of both common carotid arteries are normal. The bifurcation regions appear normal bilaterally. The internal carotid arteries demonstrate normal course and caliber. Posterior circulation: The origins of the vertebral arteries appear patent. More superior portions of both vertebral arteries demonstrate normal course and caliber, and join to form a normal appearing basilar artery. Miscellaneous: Subclavian arteries appear patent. Pre-contrast images through the neck show no soft tissue abnormalities. IMPRESSION: BRAIN MRI: No findings of acute or subacute infarction can be seen. No prior territorial infarct can be seen. Paranasal sinus disease is seen. BRAIN MR ANGIOGRAM: No significant intracranial arterial abnormality is seen. NECK MR ANGIOGRAM: Within the arteries of the neck, no hemodynamically significant stenosis can be seen. Dictated by: Yuri Woods M.D. on 08/24/2024 at 16:01 Approved by: Yuri Woods M.D. on 08/24/2024 at 16:03
== END ==
PROVIDERS: PCP Family Medicine; Referring Provider Family Medicine; Visit Provider Family Medicine
DX: H53.9 Unspecified visual disturbance (principal); J32.8 Other chronic sinusitis; R20.0 Anesthesia of skin; R20.2 Paresthesia of skin
CPT/HCPCS: 70544; 70549; 70553; A9579

== ENCOUNTER → 2024-10-10 13:00 | Outpatient (CLI) | payer OTHER, SELFPAY ==
--- NOTE | 2024-11-01 13:56 | DIAB.MNT ---
Initial Diabetes Medical Nutrition Therapy Assessment Name: Kit Espana (Shyam) Date: 10/10/24 Time: 100-210 Dx: Type II Diabetes Provider: Mirza Preferred Learning Style: Listening, Watching, Doing, Reading Shyam presents for initial Dm visit. Endorses long time DM diagnosis, 25-35 years. Last HgA1c of 6.4% in 06/2024. Wants to know more about nutrition recs and treating lows. Not taking any DM meds but experiences lows with activity a times, usually <70 but as low as 50s. Diet Recall: 830a: coffee with milk, stevia and banana 10a-12p: eggs OR yogurt with berries, nuts and honey 1p: granola bar -- does not like it and prefers hot dog and sauerkraut 5p: protein and veggies +/- 1.5c rice HS: nuts, maybe 2 toast water coffee tea glass of wine Anthropometrics: Ht: 6' Wt: 194# Physical Activity: Less movement lately Self-Monitoring Blood Glucose: Checks BG with symptoms. Eats candy when low. Endorses symptoms a few times per month, usually 60-70mg/dl at that time. Diabetes Medications: None Pertinent Labs: HgA1c: 6.4% 06/2024 Past Medical History: (Last Reviewed 08/06/24 @ 15:07 by Bonifacio Sun DO) Afib Diabetes Glaucoma Hypertension Hypertriglyceridemia Paroxysmal atrial fibrillation Fib/flutter Nutrition Rx: Carbohydrates: Meal:45 Snack:15-30g Nutrition Diagnosis: - Nutrition and food related knowledge deficit r/t needing general overview to avoid lows aeb reported lows Intervention: This participant was very receptive. Provided appropriate educational handouts. Discussed the following topics: Completed intake assessment. Discussed barriers to care. Meal timing and carb recs, portions ETOH and risks for low BG Rule of 15 for low tx CGM education, action, precautions--- consideration for sample next visit Created SMART goals for patient self-care and success. Goals: Try to eat q 3-4 hours use Rule 15 for low treatment Follow-up: ADI QUINONEZ follow-up in 2-3 weeks Yaz Dickye RDN, CRISTIANO Certified Diabetes Care and Furnace Repairer P: [phone] Thank you for this referral
--- NOTE | 2024-11-02 17:23 | DIAB.MNT ---
Initial Diabetes Medical Nutrition Therapy Assessment Name: Kit Espana (Shyam) Date: 10/10/24 Time: 100-210 Dx: Type II Diabetes Provider: Mirza Preferred Learning Style: Listening, Watching, Doing, Reading Shyam presents for initial Dm visit. Endorses long time DM diagnosis, 25-35 years. Last HgA1c of 6.4% in 06/2024. Wants to know more about nutrition recs and treating lows. Not taking any DM meds but experiences lows with activity at times. Does not check BG when low. Treats with hard candy. Not entirely sure about CGM sample. Diet Recall: 830a: coffee with milk, stevia and banana 10a-12p: eggs OR yogurt with berries, nuts and honey 1p: granola bar -- does not like it and prefers hot dog and sauerkraut 5p: protein and veggies +/- 1.5c rice HS: nuts, maybe 2 toast water coffee tea glass of wine Anthropometrics: Ht: 6' Wt: 194# Physical Activity: Less movement lately Self-Monitoring Blood Glucose: Checks BG with symptoms. Eats candy when low. Endorses symptoms a few times per month. Diabetes Medications: None Pertinent Labs: HgA1c: 6.4% 06/2024 Past Medical History: (Last Reviewed 08/06/24 @ 15:07 by Bonifacio Sun DO) Afib Diabetes Glaucoma Hypertension Hypertriglyceridemia Paroxysmal atrial fibrillation Fib/flutter Nutrition Rx: Carbohydrates: Meal:45 Snack:15-30g Nutrition Diagnosis: - Nutrition and food related knowledge deficit r/t needing general overview to avoid lows aeb reported lows Intervention: This participant was very receptive. Provided appropriate educational handouts. Discussed the following topics: Completed intake assessment. Discussed barriers to care. Meal timing and carb recs, portions ETOH and risks for low BG Rule of 15 for low tx CGM education, action, precautions--- consideration for sample next visit if pt is open to this. Created SMART goals for patient self-care and success. Goals: Try to eat q 3-4 hours use Rule 15 for low treatment Follow-up: ADI QUINONEZ follow-up in 2-3 weeks Yaz Dickey RDN, CRISTIANO Certified Diabetes Care and Grill [employer] P: [phone] Thank you for this referral
== END ==
PROVIDERS: PCP Family Medicine; Referring Provider Family Medicine
DX: E11.9 Type 2 diabetes mellitus without complications (principal); Z71.3 Dietary counseling and surveillance
CPT/HCPCS: 97802

== ENCOUNTER → 2024-11-01 14:16 | Outpatient (CLI) | payer OTHER, SELFPAY ==
--- NOTE | 2024-12-14 08:47 | DIAB.FU ---
Follow-up Diabetes Education Assessment Name: Kit Espana (Shyam) Date: 12/14/24 Time: 230-320p Dx: Type II Diabetes Provider: Mirza Howe presents for follow-up Dm visit. Endorses long time DM diagnosis, 25-35 years. Last HgA1c of 6.4% in 06/2024. Wants to try CGM sample today. States he does not think he is having low BG lately, but wants to trial CGM. Sometimes confuses pulse with BG per report. Treats what he thinks are lows with hard candy. Endorses neuropathy. Questions about health in using air fryer for chx. Has migraine headaches and cannot tell if these are BG related or not. Anthropometrics: Ht: 6' Wt: 194# Physical Activity: Tries to walk q day. Self-Monitoring Blood Glucose: Checking daily now at random times. Usually 110-130mg/dl, can be up to 150mg/dl per report. Diabetes Medications: None Pertinent Labs: HgA1c: 6.4% 06/2024 Past Medical History: (Last Reviewed 08/06/24 @ 15:07 by Bonifacio Sun DO) Afib Diabetes Glaucoma Hypertension Hypertriglyceridemia Paroxysmal atrial fibrillation Fib/flutter Intervention: This participant was very receptive. Provided appropriate educational handouts. Discussed the following topics: CGM sample, self placement, education, precautions BG recommendations Safe physical activity Consistent meal/snack times if having lows s/s of typical lows Created SMART goals for patient self-care and success. Goals: Try to eat q 3-4 hours- in progress use Rule 15 for low treatment- continue Wear CGM x 10 days- new Follow-up: ADI QUINONEZ follow-up in 2 weeks. If he is having lows, may consider CGM rx or OTC CGM options. Yaz Dickey RDN, CRISTIANO Certified Diabetes Care and Corporate Receptionist P: [phone] Thank you for this referral
== END ==
PROVIDERS: PCP Family Medicine; Referring Provider Family Medicine
DX: E11.9 Type 2 diabetes mellitus without complications (principal); Z71.3 Dietary counseling and surveillance
CPT/HCPCS: G0108

== ENCOUNTER → 2024-11-15 13:57 | Outpatient (CLI) | payer OTHER, SELFPAY ==
--- NOTE | 2024-12-14 08:54 | DIAB.MNTFU ---
Follow-up Diabetes Medical Nutrition Therapy Assessment Name: Kit Espana (Shyam) Date: 11/15/24 Time: 2-225p Dx: Type II Diabetes Provider: Mirza Howe presents for follow-up Dm visit. Endorses long time DM diagnosis, 25-35 years. Last HgA1c of 6.4% in 06/2024. Wore CGM. No lows in 10.5 day period. Did have migraines, but does not seem BG related. States he was being careful of diet during this time. Does endorse some feeling of low BG and just resolves with eating something or hard candies. Gets too busy and skips eating at times, this may result in the symptoms of a low per report. Use to carry nutrition bars with him on his walks. Sometimes feels low on walks. Reviewed printed usual day of diet. Seems to eat q 2-3 hours. Anthropometrics: Ht: 6' Wt: 194# Physical Activity: Tries to walk q day. Self-Monitoring Blood Glucose: Very good time in range. TIR: 0% very high 7% high 93% in range 0% low or very low avmg/dl GMI: 6.6% std dev: 22mg/dl variance: 16.1% Diabetes Medications: None Pertinent Labs: HgA1c: 6.4% 06/2024 Past Medical History: (Last Reviewed 08/06/24 @ 15:07 by Bonifacio Sun DO) Afib Diabetes Glaucoma Hypertension Hypertriglyceridemia Paroxysmal atrial fibrillation Fib/flutter Intervention: This participant was very receptive. Provided appropriate educational handouts. Discussed the following topics: BG trends Importance of keeping a bar on him during walks again BG goals Review of current diet and meal timing. Created SMART goals for patient self-care and success. Goals: Try to eat q 3-4 hours- in progress use Rule 15 for low treatment- continue Wear CGM x 10 days- met Keep a bar in your pocket during walks- new Follow-up: ADI QUINONEZ follow-up prn. Shyam does not seem to have consistent lows. Expect keeping some bars on him may help keep consistent meal timing and reduce lows on his walks. He agreed to this plan. Encouraged him to call or message prn for follow-up needs. Yaz Dickey RDN, CRISTIANO Certified Diabetes Care and Jeep [employer] P: [phone] Thank you for this referral
== END ==
PROVIDERS: PCP Family Medicine; Referring Provider Family Medicine
DX: E11.9 Type 2 diabetes mellitus without complications (principal); Z71.3 Dietary counseling and surveillance
CPT/HCPCS: 97803

== ENCOUNTER → 2025-06-26 15:09 | Outpatient (CLI) | payer OTHER, SELFPAY ==
[2025-06-26 16:01] LABS: Hematocrit 43.0 % (41-53); Hemoglobin 14.3 g/dL (13.5-17.5); Mean Corpuscular HGB Conc 33.4 % (30-36); Mean Corpuscular Hemoglobin 27.0 PG (26-34); Mean Corpuscular Volume 80.8 fL (80-100); Platelet Count 136 X10^3/uL (150-400)
[2025-06-26 16:10] LABS: Hemoglobin A1C% w Est Avg Glu 6.7 % (4.0-6.0)
[2025-06-26 16:36] LABS: Alanine Aminotransferase 22 IU/L (<50); Albumin 4.6 g/dL (3.5-5.0); Albumin Globulin Ratio 1.8 (1.0-2.8); Alkaline Phosphatase 71 U/L (38-126); Blood Urea Nitrogen 16 mg/dL (9-20); Calcium 10.5 mg/dL (8.4-10.2); Carbon Dioxide 29 mmol/L (22-32); Chloride 101 mmol/L (98-107); Cholesterol 109 mg/dL (140-199); Estimated Glomerular Filt Rate > 60 mL/min (>60); Globulin 2.5 g/dL (1.7-4.1); Glucose 159 mg/dL (70-99); HDL Cholesterol 33 mg/dL (40-60); HEMOLYSIS < 15 (0-50); Potassium 4.1 mmol/L (3.4-5.1); Sodium 137 mmol/L (137-145); Total Protein 7.1 g/dL (6.3-8.2); Triglycerides 196 mg/dL (35-150)
[2025-06-26 17:04] LABS: TSH w/ Reflex to FT4 0.94 uIU/mL (0.47-4.68)
[2025-06-26 18:20] LABS: Microalbumi Creatinin Ratio Ur 23.0 ug/mg CR (<30)
== END ==
PROVIDERS: PCP Internal Medicine; Referring Provider Internal Medicine; Visit Provider Internal Medicine
DX: E11.69 Type 2 diabetes mellitus with other specified complication (principal); E78.5 Hyperlipidemia, unspecified; I48.0 Paroxysmal atrial fibrillation; E78.2 Mixed hyperlipidemia
CPT/HCPCS: 36415; 80053; 80061; 82043; 82570; 83036; 84443; 85027

== ENCOUNTER → 2025-08-15 17:41 | Outpatient (ROUT) | payer OTHER, SELFPAY | LOC: LAB 17:41 | PROVIDERS: PCP Internal Medicine | DX: L03.90 Cellulitis, unspecified (principal); L23.89 Allergic contact dermatitis due to other agents; L24.9 Irritant contact dermatitis, unspecified cause; R21 Rash and other nonspecific skin eruption; Z79.899 Other long term (current) drug therapy | CPT/HCPCS: 87070; 87205 ==